=== PATIENT | male | born 1960 ===

== ENCOUNTER 2022-02-23 10:27 | Outpatient (CLI) | payer OTHER ==
[~2022-02-23 10:27] MED LIST: SKELAXIN800 MG PO; ULTRACET PO
== END 2022-02-23 10:29 | disposition home or self-care (01) ==
LOC: NUCLEAR 10:27
PROVIDERS: ATTEND Internal Medicine
DX: G30.0 Alzheimer's disease with early onset (principal); Z91.013 Allergy to seafood
CPT/HCPCS: 78803; A9557